=== PATIENT | female | born 1970 | race Caucasian/White ===

== ENCOUNTER 2019-02-17 01:26 | Emergency (ER) | payer MEDICAID ==
[~2019-02-17] VITALS: Ht 154.9 cm; Wt 68.5 kg
[2019-02-17 01:32] VITALS: Ht 154.9 cm; Wt 68.5 kg
[2019-02-17 02:04] LABS: PLATELET COUNT 307 x10^3mcL (130-400); RED CELL DISTRIBUTION WIDTH 13.6 % (11.5-14.5)
[2019-02-17 02:12] LABS: CALCIUM 8.4 mg/dL (8.5-10.1); CHLORIDE SERUM 103 mmol/L (98-107); CREATININE SERUM 0.7 mg/dL (0.6-1.0); GFR1 > 60 mL/min; GLUCOSE SERUM 97 mg/dL (74-106); POTASSIUM SERUM 3.5 mmol/L (3.5-5.1); SODIUM SERUM 137 mmol/L (136-145)
[2019-02-17 02:17] LABS: ALBUMIN 3.5 g/dL (3.4-5.0); ALKALINE PHOSPHATASE 102 U/L (46-116); ALT/SGPT 35 U/L (14-59); AST/SGOT 24 U/L (15-37); BILIRUBIN TOTAL 0.27 mg/dL (0.20-1.00); TOTAL PROTEIN, SERUM 7.3 g/dL (6.4-8.2)
[2019-02-17 02:24] LABS: T3 TOTAL 0.79 ng/mL
[2019-02-17 02:26] LABS: FREE T4 1.12 ng/dL (0.76-1.46); FREE THYROXINE INDEX 2.4 ug/dL (1.4-4.5); T4(THYROXINE) 7.6 ug/dL (4.7-13.3)
[2019-02-17 04:11] VITALS: BP 100/54
== END 2019-02-17 04:11 | disposition home or self-care (01) ==
LOC: ED 01:26
PROVIDERS: Emergency Medicine
DX: R20.2 Paresthesia of skin (principal); H53.9 Unspecified visual disturbance; M54.2 Cervicalgia; M54.9 Dorsalgia, unspecified; R11.0 Nausea; R20.0 Anesthesia of skin; J45.909 Unspecified asthma, uncomplicated; F41.9 Anxiety disorder, unspecified; Z86.39 Personal history of other endocrine, nutritional and metabolic disease
CPT/HCPCS: 36415; 84439; Q0092

== ENCOUNTER 2019-10-13 21:06 | Emergency (ER) | payer MEDICAID ==
[~2019-10-13] VITALS: Ht 154.9 cm; Wt 64.9 kg
[2019-10-13 22:00] VITALS: BP 149/74; Ht 154.9 cm; Wt 64.9 kg
== END 2019-10-14 00:44 | disposition home or self-care (01) ==
LOC: ED 21:06
DX: K64.9 Unspecified hemorrhoids (principal); R10.2 Pelvic and perineal pain; K59.00 Constipation, unspecified; J45.990 Exercise induced bronchospasm
CPT/HCPCS: Q0092

== ENCOUNTER 2020-07-24 02:24 | Emergency (ER) | payer MEDICAID ==
[~2020-07-24] VITALS: Ht 154.9 cm; Wt 70.5 kg
[2020-07-24 02:38] VITALS: Ht 154.9 cm; Wt 70.5 kg
[2020-07-24 03:45] VITALS: BP 129/84
== END 2020-07-24 03:45 | disposition home or self-care (01) ==
LOC: ED 02:24
DX: K59.00 Constipation, unspecified (principal); E03.9 Hypothyroidism, unspecified